=== PATIENT | male | born 1960 | race Caucasian/White ===

== ENCOUNTER 2023-11-23 07:13 | Day surgery (SDC) | payer BC ==
[2023-11-20 10:07] VITALS: BMI 30.1
[2023-11-23] MEDS ORDERED: PROPOFOL 40 ML ONE (09:27)
[2023-11-23] MEDS ORDERED: Lidocaine 1% PF 5 ML VIAL ONE (09:33)
== END 2023-11-23 10:25 | disposition home or self-care (01) ==
LOC: CSHSDC 07:13
PROVIDERS: ATTEND Internal Medicine Gastroenterology
PROC: 0DJD8ZZ Inspection of Lower Intestinal Tract, Via Natural or Artificial Opening Endoscopic (ICD-10-PCS; principal; 2023-11-23)
DX: Z12.11 Encounter for screening for malignant neoplasm of colon (principal); K57.30 Diverticulosis of large intestine without perforation or abscess without bleeding; K64.9 Unspecified hemorrhoids; I10 Essential (primary) hypertension; E78.5 Hyperlipidemia, unspecified; J45.909 Unspecified asthma, uncomplicated; Z86.010 Personal history of colon polyps; Z79.899 Other long term (current) drug therapy
CPT/HCPCS: J2704

== ENCOUNTER 2025-03-30 05:58 | Day surgery (SDC) | payer BC ==
[2025-03-27 08:47] VITALS: BMI 29.8
[2025-03-30] MEDS ORDERED: CEFAZOLIN 2 GM VIAL ONE (06:50)
[2025-03-30] MEDS ORDERED: Bupivacaine/Epinephrine 0.25% 30 ML VIAL ONE (06:50)
[2025-03-30] MEDS ORDERED: PROPOFOL 20 ML ONE (07:02)
[2025-03-30] MEDS ORDERED: Rocuronium Bromide 10 MG/ML (10ML VIAL) ONE (07:04)
[2025-03-30] MEDS ORDERED: Lidocaine 1% PF 5 ML VIAL ONE (07:04)
[2025-03-30] MEDS ORDERED: Glycopyrrolate 0.2 MG/ML 5 ML SYRINGE ONE (07:05)
[2025-03-30] MEDS ORDERED: SUCCINYLCHOLINE/SOD CL,ISO/PF 200 MG/10 ML SYRINGE FS ONE (07:06)
[2025-03-30] MEDS ORDERED: PHENYLEPHRINE-NS 100 MCG/ML 10 ML SYRINGE ONE ×2 (07:55→08:32)
[2025-03-30] MEDS ORDERED: Ondansetron PF 4 MG/2 ML Vial ONE ×2 (09:17→11:07)
[2025-03-30] MEDS ORDERED: SUGAMMADEX SODIUM 200 MG/2 ML VIAL ONE (09:26)
== END 2025-03-30 12:30 | disposition home or self-care (01) ==
LOC: CSHSDC 05:58
PROVIDERS: ATTEND Student in an Organized Health Care Education/Training Program
PROC: 0WQF4ZZ Repair Abdominal Wall, Percutaneous Endoscopic Approach (ICD-10-PCS; principal; 2025-03-30)
DX: K43.6 Other and unspecified ventral hernia with obstruction, without gangrene (principal); I10 Essential (primary) hypertension; E78.5 Hyperlipidemia, unspecified; J45.909 Unspecified asthma, uncomplicated; G43.909 Migraine, unspecified, not intractable, without status migrainosus; Z87.891 Personal history of nicotine dependence; Z88.8 Allergy status to other drugs, medicaments and biological substances; Z79.82 Long term (current) use of aspirin; Z79.899 Other long term (current) drug therapy
CPT/HCPCS: C1781; J1100; J2405; J2704; J3010; S2900